=== PATIENT | male | born 1965 | race Hispanic/Latino ===

== ENCOUNTER 2024-10-26 13:55 | Emergency (ER) | payer OTHER ==
[~2024-10-26] VITALS: Ht 162.6 cm; Wt 71.7 kg
[2024-10-26 14:08] VITALS: PULSE 91; RESP 18; TEMP 98.2
[2024-10-26] MEDS: KETOROLAC TROMETHAMINE 30 MG/ML VIAL IM STA (15:06)
[2024-10-26] MEDS: HYDROCODONE/APAP 5MG-325MG TAB PO ONE (15:06)
[2024-10-26] MEDS: CYCLOBENZAPRINE HCL 10 MG TAB PO ONE (15:06)
[2024-10-26] MEDS ORDERED: METHOCARBAMOL750 MG PO (15:26)
[2024-10-26] MEDS ORDERED: IBUPROFEN800 MG PO (15:26)
[2024-10-26 15:39] VITALS: BP 134/70; PULSE 91; RESP 18; O2SAT 97
== END 2024-10-26 15:47 | disposition home or self-care (01) ==
LOC: FSED 14:03
DX: R07.89 Other chest pain (principal); V53.5XXA Driver of pick-up truck or van injured in collision with car, pick-up truck or van in traffic accident, initial encounter; Y92.488 Other paved roadways as the place of occurrence of the external cause; I10 Essential (primary) hypertension; E11.9 Type 2 diabetes mellitus without complications
CPT/HCPCS: 71250; 73140; 93005; 99284; J1885